=== PATIENT | female | born 1995 | race Caucasian/White ===

== ENCOUNTER 2019-09-12 15:01 | Emergency (ER) | payer BC ==
[~2019-09-12] VITALS: Ht 172.7 cm; Wt 77.1 kg
--- NOTE | 2019-09-12 15:27 | NUR ---
PATIENT WAS MSE BY DR GARCIA IN ROOM 01B.
[2019-09-12 16:49] LABS: BASOPHILS % (AUTO) 0.2 % (0.0-2.0); EOSINOPHILS # (AUTO) 0.3 K/uL (0.0-0.7); EOSINOPHILS % (AUTO) 2.6 % (0.0-7.0); HEMATOCRIT 41.8 % (31.2-41.9); HEMOGLOBIN 14.5 g/dL (10.9-14.3); LYMPHOCYTES # (AUTO) 1.4 K/uL (20.0-40.0); MEAN CORPUSCULAR HEMOGLOBIN 31.4 uug (24.7-32.8); MEAN CORPUSCULAR HGB CONC 35 g/dL (32.3-35.6); MEAN CORPUSCULAR VOLUME 90.3 fL (75.5-95.3); MONOCYTES # (AUTO) 0.7 K/uL (2.0-10.0); MONOCYTES % (AUTO) 6.3 % (0.0-11.0); NEUTROPHILS # (AUTO) 8.6 K/uL (1.8-8.9); NEUTROPHILS % (AUTO) 77.9 % (38.5-71.5); PLATELET COUNT (AUTO) 250 K/uL (179-408); RED BLOOD CELL COUNT(AUTO) 4.63 MIL/uL (3.63-4.92)
[2019-09-12 16:54] LABS: CREATININE 0.6 mg/dL (0.6-1.3); POTASSIUM 4.2 mmol/L (3.5-5.1)
[2019-09-12 16:59] LABS: BILIRUBIN,TOTAL 1.5 mg/dL (0.2-1.0); TOTAL PROTEIN, SERUM 7.5 g/dL (6.4-8.2)
[2019-09-12 17:29] VITALS: BP 132/75
--- NOTE | 2019-09-12 17:31 | NUR ---
PT WAS D/C'd TO HOME AFTER DR GARCIA RE-EVALUATION. D/C INSTRUCTIONS GIVEN TO THE PT.
== END 2019-09-12 17:31 | disposition home or self-care (01) ==
LOC: ER 15:01
DX: R06.00 Dyspnea, unspecified (principal); J18.9 Pneumonia, unspecified organism; F12.10 Cannabis abuse, uncomplicated
CPT/HCPCS: 36415; 71045; 85025; 93005; A4663